=== PATIENT | female | born 1935 | race Caucasian/White ===

== ENCOUNTER → 2017-05-17 | Outpatient (CLI) | payer MEDICARE, OTHER ==
--- NOTE | 2017-05-17 14:48 | RAD ---
DATE: 05/17/2017 EXAM: BREAST LEFT, MAMMO SUNIL DIAG BILAT HISTORY: Lateral left breast pain for 2 weeks. COMPARISON: 05/12/2016 This study was interpreted with the benefit of Computerized Aided Detection (CAD). The breast parenchyma is heterogeneously dense, which could reduce sensitivity of mammography. Breast parenchyma level C. FINDINGS: Digital MLO and CC mammograms of both breasts were obtained. Additionally digital breast tomosynthesis images (3-D mammography) of both breasts in the MLO and CC projections were performed. Comparison study is dated 05/02/2016. The breast parenchyma is heterogeneously dense which can obscure a lesion on mammography (breast density code C). No spiculated mass is seen. No malignant appearing calcification or area of architectural distortion is noted. Benign-appearing calcifications are seen within both breasts. Digital breast tomosynthesis images demonstrate no spiculated mass. No malignant appearing calcification is seen. A real-time ultrasound examination of the left breast in the area of the patient's pain was performed (1 to 5:00 position). No solid or cystic mass is seen within this area of the left breast by ultrasound. Within the left axilla an hypoechoic lymph node is seen which measures 1.8 cm in greatest diameter. This is likely reactive. A follow-up ultrasound in 6 months is recommended to document its stability. IMPRESSION: BI-RADS Category 3 probably benign finding. A 1.8 cm probable reactive left is seen within the left axilla. A repeat ultrasound left axilla in 6 months is recommended to document stability. No abnormality is seen in the left breast in the area of the patient's pain. BI-RADS CATEGORY: 3 PROBABLY BENIGN FINDING(S)-SHORT INTERVAL FOLLOW-UP SUGGESTED RECOMMENDED FOLLOW-UP: 6M 6 MONTH FOLLOW-UP PQRS compliance statement: Patient information was entered into a reminder system with a target due date of November 15, 2017 for follow-up ultrasound of the left axilla. Mammography is a sensitive method for finding small breast cancers, but it does not detect them all and is not a substitute for careful clinical examination. A negative mammogram does not negate a clinically suspicious finding and should not result in delay in biopsying a clinically suspicious abnormality. "Our facility is accredited by the [employer] Mammography Program."
== END | disposition home or self-care (01) ==
LOC: MAMMO 12:43
PROVIDERS: ATTEND Family Medicine
DX: N64.4 Mastodynia (principal)
CPT/HCPCS: 76641; G0204; G0279; 77062; 77066

== ENCOUNTER → 2017-11-22 | Outpatient (CLI) | payer MEDICARE, OTHER ==
--- NOTE | 2017-11-22 13:33 | RAD ---
Left axillary ultrasound, 11/22/2017: History: Follow-up lymph node A targeted ultrasound exam of the left axilla was performed with comparison made to a study from 05/17/2017. A single oval-shaped hypoechoic mass is identified compatible with an enlarged lymph node. It currently measures 3.7 x 1.5 x 1.8 cm. It does not demonstrate a normal echogenic hilum. Its margins are slightly lobulated. A smaller 1.5 x 0.8 x 1.8 cm left axillary node was present on the previous study. IMPRESSION: Left axillary mass compatible with an enlarged lymph node. Diagnostic considerations include lymphoma or metastatic disease. Ultrasound-guided biopsy may be considered for further evaluation.
== END | disposition home or self-care (01) ==
LOC: US 12:51
PROVIDERS: ATTEND Family Medicine
DX: R92.8 Other abnormal and inconclusive findings on diagnostic imaging of breast (principal); R59.0 Localized enlarged lymph nodes
CPT/HCPCS: 76641

== ENCOUNTER → 2021-10-21 | Outpatient (CLI) | payer MEDICARE, OTHER ==
--- NOTE | 2021-10-22 08:53 | RAD ---
XR THORACIC SPINE 3VIEWS, XR LUMBAR SPINE 2-3V History: Reason: NKI, PAIN SINCE WEDNESDAY / Spl. Instructions: / History: Technique: 2 views thoracic spine and 3 views lumbar spine. Comparison: None. Findings: Thoracic spine: Mild rightward curvature of the lower thoracic upper lumbar spine. Moderate lower tho racic degenerative disc changes. No acute fracture. Large hiatal hernia. Lumbar spine: Lumbar curvature of the lumbar spine centered at L3. No acute fracture. Advanced degene rative disc changes most prominent L1-L2 and L4-5. Advanced facet arthropathy. Grade 1 anterolisthesi s L5 on S1 and L4 on L5. Vascular calcifications. Impression: 1. S-shaped curvature of the thoracolumbar spine. 2. Advanced lumbar spondylosis. 3. Moderate thoracic spondylosis. Electronically signed by: Bandar Rascon DO (10/22/2021 8:50 AM) [id number]
== END ==
LOC: RAD 14:02
PROVIDERS: ATTEND Family Medicine
DX: M47.816 Spondylosis without myelopathy or radiculopathy, lumbar region (principal); M47.814 Spondylosis without myelopathy or radiculopathy, thoracic region; M51.85 Other intervertebral disc disorders, thoracolumbar region; M43.16 Spondylolisthesis, lumbar region; M48.8X6 Other specified spondylopathies, lumbar region
CPT/HCPCS: 72072; 72100